=== PATIENT | female | born 1990 | race Caucasian/White ===

== ENCOUNTER 2016-09-22 12:25 | Emergency (ER) | payer BC ==
[~2016-09-22] VITALS: Ht 170.2 cm; Wt 52.2 kg
[2016-09-22 13:13] LABS: HEMATOCRIT 32.8 % (36.0-46.0); MCH 23.9 PG (29.0-34.0); MCHC 30.8 G/DL (30.0-36.0); MCV 77.7 FL (83-99); PLATELET COUNT 188 K/uL (156-360); RED BLOOD COUNT 4.22 M/uL (3.80-5.20); WHITE BLOOD COUNT 4.8 K/uL (4.1-10.2)
[2016-09-22 13:20] LABS: CHLORIDE 106 mEq/L (99-109); POTASSIUM 3.6 mEq/L (3.7-5.4); SODIUM 138 mEq/L (136-147)
[2016-09-22 13:22] LABS: GLUCOSE 91 mg/dL (70-99)
[2016-09-22] MEDS ORDERED: INVANZ1 GM IV (13:22)
[2016-09-22] MEDS ORDERED: CUBICIN500 MG/10 IV (13:22)
[2016-09-22 13:24] LABS: ANION GAP 11 MEQ/L (2-14); TOTAL BILIRUBIN 0.5 mg/dL (0.0-1.0)
[2016-09-22 13:26] LABS: ALKALINE PHOSPHATASE 70 IU/L (3-129)
[2016-09-22 13:27] LABS: GFR ESTIMATE (CALCULATED) > 59 mL/min/; UREA NITROGEN (BUN) 13 mg/dL (9-23)
[2016-09-22 13:29] LABS: LIPASE 31 U/L (1.0-51.0)
[2016-09-22 13:35] LABS: ADD MIUA? YES; BILIRUBIN SMALL; BLOOD NEGATIVE; COLOR YELLOW ((YELLOW)); GLUCOSE (STRIP) NEGATIVE; KETONES >=80; LEUKOCYTES SMALL; NITRITE NEGATIVE; PROTEIN (STRIP) TRACE; SPECIFIC GRAVITY 1.026 (1.000-1.030)
[2016-09-22 13:35] LABS: QUANTITATIVE HCG < 4.0 MIU/ML
[2016-09-22 14:48] LABS: BACTERIA RARE; CASTS NONE SEEN /LPF; CRYSTALS NONE SEEN; EPITHELIAL CELLS RARE; MUCUS 1+; RED BLOOD CELLS NONE SEEN /HPF (0-5); UCUL ADDED? NO
[2016-09-22] MEDS ORDERED: ZOFRAN ODT4 MG PO (17:24)
[2016-09-22 18:05] VITALS: BP 105/66
== END 2016-09-22 18:49 | disposition home or self-care (01) ==
LOC: RME 12:25 → EME 12:25 → RME 18:49
DX: K52.9 Noninfective gastroenteritis and colitis, unspecified (principal); G82.20 Paraplegia, unspecified; Z91.040 Latex allergy status; Z91.041 Radiographic dye allergy status
CPT/HCPCS: 71020; 80053; 81003; 83690; 84702; 85027; 87040; 87493; 99281; 99284; J2405; J7030